=== PATIENT | male | born 1980 | race Caucasian/White ===

== ENCOUNTER → 2019-07-29 | Outpatient (CLI) | payer BC ==
--- NOTE | 2019-07-29 16:58 | REP ---
Left hand series: Four views. History: Pain. Findings: Four views of the left hand demonstrate moderate osteoarthritic spurring at the first metacarpal phalangeal joint. There is a small ossicle density at the volar aspect of the PIP joint of the long finger on the lateral radiograph suggesting an old ununited volar plate avulsion chip fracture. This appears well corticated. Bones, joints and soft tissues are otherwise unremarkable. 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 Corticated defect at the volar plate PIP joint long finger at the base of the middle phalanx. This appears old. No acute bony abnormality seen. Electronically Signed by Jimi Whalen MD 07/29/2019 04:50 P
== END ==
LOC: M WUC 15:48
PROVIDERS: ATTEND Nurse Practitioner Family
DX: M79.645 Pain in left finger(s) (principal)